=== PATIENT | female | born 1990 | race Two or more races ===

== ENCOUNTER 2019-01-17 17:35 | Emergency (ER) | payer OTHER ==
[2019-01-17 18:06] VITALS: BP 112/61; PULSE 88; TEMP 98.2
--- NOTE | 2019-01-17 19:51 | PDOC ---
History of Present Illness - General Chief Complaint: Chest Pain Stated Complaint: CHEST PAIN Time Seen by Provider: 01/17/19 19:34 History Source: Patient Exam Limitations: No Limitations - History of Present Illness Initial Comments: 01/17/19 19:42 Patient is a 28 year old female with no pmhx c/o left sided chest pain x 3 days. Patient that she was doing nothing when she noticed she had pain in the left side of her chest. States the pain is intermittent sharp, stabbing in the left chest, 7/10 which last for a few hours when the pain come, nonpleuritic, nonreproducible, with no aggravating or alleviating factors. Did not take any meds for the pain. No recent travel, no OCP. FamHx: father DM, HTN, HLD with a cardiac stent at 45 years old. PMHX: neg PSOCHX: neg etoh, cig, durgs ALL: NKDA GENERAL/CONSTITUTIONAL: [No fever or chills. No weakness. No weight change.] HEAD, EYES, EARS, NOSE AND THROAT: [No change in vision. No ear pain or discharge. No sore throat.] CARDIOVASCULAR: (+) chest pain (-) shortness of breath.] RESPIRATORY: (-) cough, wheezing, or hemoptysis.] GASTROINTESTINAL: [No nausea, vomiting, diarrhea or constipation. No rectal bleeding.] GENITOURINARY: [No dysuria, frequency, or change in urination.] MUSCULOSKELETAL: [No joint or muscle swelling or pain. No neck or back pain.] SKIN AND BREASTS: [No rash or easy bruising.] NEUROLOGIC: [No headache, vertigo, loss of consciousness, or loss of sensation.] PSYCHIATRIC: [No depression or anxiety.] ENDOCRINE: [No increased thirst. No abnormal weight change.] HEMATOLOGIC/LYMPHATIC: [No anemia, easy bleeding, or history of blood clots.] ALLERGIC/IMMUNOLOGIC: [No hives or skin allergy. No latex allergy.] GENERAL: [The patient is awake, alert, and fully oriented, in no acute distress. ] HEAD: [Normal with no signs of trauma.] EYES: [Pupils equal, round and reactive to light, extraocular movements intact, sclera anicteric, conjunctiva clear.] ENT: [Ears normal, nares patent, oropharynx clear without exudates. Moist mucous membranes.] NECK: [Normal range of motion, supple without lymphadenopathy, JVD, or masses.] LUNGS: [Breath sounds equal, clear to auscultation bilaterally. No wheezes, and no crackles.] HEART: [Regular rate and rhythm, normal S1 and S2 without murmur, rub.] ABDOMEN: [Soft, nontender, normoactive bowel sounds. No guarding, no rebound. No masses.] EXTREMITIES: [Normal range of motion, no edema. No clubbing or cyanosis. No cords, erythema, or tenderness.] NEUROLOGICAL: [Cranial nerves II through XII grossly intact. Normal speech, normal gait.] PSYCH: [Normal mood, normal affect.] SKIN: [Warm, Dry, normal turgor, no rashes or lesions noted.] Past History - Past Medical History Allergies/Adverse Reactions: Allergies Allergy/AdvReac Type Severity Reaction Status Date / Time No Known Allergies Allergy Verified 02/27/14 16:51 Home Medications: Ambulatory Orders No Home Medications 0 dose .ROUTE UTDICT 05/20/13 Asthma: No Cancer: No Cardiac Disorders: No CVA: No COPD: No CHF: No - Surgical History Appendectomy: No Cardiac Surgery: No Cholecystectomy: No - Suicide/Smoking/Psychosocial Hx Smoking Status: No Smoking History: Never smoked Have you smoked in the past 12 months: No Number of Cigarettes Smoked Daily: 0 Information on smoking cessation initiated: No Hx Alcohol Use: No Drug/Substance Use Hx: No Cardiac Specific PMH - Complaint Specific PMHX Myocardial Infarction: No *Physical Exam - Vital Signs Last Vital Signs Temp Pulse Resp BP Pulse Ox 98.2 F 88 20 112/61 100 01/17/19 18:04 01/17/19 18:04 01/17/19 18:04 01/17/19 18:04 01/17/19 18:04 Moderate Sedation - Procedure Monitoring Vital Signs: Procedure Monitoring Vital Signs Temperature 98.2 F 01/17/19 18:04 Pulse Rate 88 01/17/19 18:04 Respiratory Rate 20 01/17/19 18:04 Blood Pressure 112/61 01/17/19 18:04 O2 Sat by Pulse Oximetry (%) 100 01/17/19 18:04 ED Treatment Course - LABORATORY CBC & Chemistry Diagram: 01/17/19 20:26 01/17/19 20:26 - ADDITIONAL ORDERS Additional order review: Laboratory Results 01/17/19 01/17/19 20:26 19:56 Sodium 138 Potassium 4.6 Chloride 108 H Carbon Dioxide 22 Anion Gap 8 BUN 10 Creatinine 0.7 Creat Clearance w eGFR > 60 Random Glucose 76 Calcium 9.1 Total Bilirubin 0.2 AST 15 ALT 25 Alkaline Phosphatase 70 Creatine Kinase 146 Troponin I < 0.02 Total Protein 7.7 Albumin 4.2 Serum , Qual Negative 01/17/19 20:26 RBC 4.41 MCV 87.1 MCHC 33.8 RDW 13.7 MPV 9.7 D Neutrophils % 51.7 D Lymphocytes % 34.5 D Monocytes % 10.5 H Eosinophils % 2.4 D Basophils % 0.9 - RADIOLOGY Radiology Studies Ordered: Category Date Time Status CHEST PA & LAT [RAD] Stat Radiology 01/17/19 21:19 Taken Medical Decision Making - Medical Decision Making 01/17/19 19:42 Patient is a 28 year old female with no pmhx c/o left sided chest pain x 3 days. Patient that she was doing nothing when she noticed she had pain in the left side of her chest. States the pain is intermittent sharp, stabbing in the left chest, 7/10 which last for a few hours when the pain come, nonpleuritic, nonreproducible, with no aggravating or alleviating factors. Did not take any meds for the pain. No recent travel, no OCP. FamHx: father DM, HTN, HLD with a cardiac stent at 45 years old. Patient is PERC neg. EKG done show some T wave inversion, will get cbc, comp, trop, cxr EKG ST 104, NAD, T wave inversion V1-V2 01/17/19 21:46 Laboratory Tests 01/17/19 20:26 Troponin I < 0.02 I discussed the physical exam findings, ancillary test results and final diagnoses with the patient. I answered all of the patient's questions. The patient was satisfied with the care received and felt comfortable with the discharge plan and treatment plan. The Patient agrees to follow up with the primary care physician within 24-72 hours. *DC/Admit/Observation/Transfer Diagnosis at time of Disposition: Chest pain Qualifiers: Chest pain type: unspecified Qualified Code(s): R07.9 - Chest pain, unspecified - Discharge Dispostion Disposition: HOME Condition at time of disposition: Stable - Referrals Referrals: Raul Ortega MD [Staff Physician] - - Patient Instructions Printed Discharge Instructions: DI for Atypical Chest Pain Additional Instructions: Your Discharge Instructions: You must call primary care physician within 24 hours to arrange follow-up. Return to the Emergency Department with any new, persistent or worsening symptoms, for fever, chills, SOB, dizziness or any other concerning changes that may occur. Follow up with cardiology call to make an appointment. - Post Discharge Activity
[2019-01-17 20:38] LABS: BASO % 0.9 % (0-2.0); EOS % 2.4 % (0-4.5); HEMATOCRIT 38.4 % (32.4-45.2); LYMPH % 34.5 % (8-40); MCH 29.4 pg (25.7-33.7); MCHC 33.8 g/dl (32.0-36.0); MEAN CELL VOLUME 87.1 fl (80-96); MEAN PLT VOLUME 9.7 fl (7.5-11.1); MONO % 10.5 % (3.8-10.2); NEUT % 51.7 % (42.8-82.8); PLATELET COUNT 313 K/MM3 (134-434); RBC 4.41 M/mm3 (3.60-5.2); RDW 13.7 % (11.6-15.6); WHITE BLOOD COUNT 5.8 K/mm3 (4.0-10.0)
[2019-01-17 21:05] LABS: ALBUMIN 4.2 g/dl (3.4-5.0); ALK PHOS 70 U/L (45-117); ANION GAP 8 MMOL/L (8-16); BILIRUBIN,TOTAL 0.2 mg/dL (0.2-1); BLOOD UREA NITROGEN 10 mg/dL (7-18); CALCIUM 9.1 mg/dL (8.5-10.1); CHLORIDE 108 mmol/L (98-107); CO2 22 mmol/L (21-32); CREATININE 0.7 mg/dL (0.55-1.3); GLUCOSE,RANDOM 76 mg/dL (74-106); POTASSIUM 4.6 mmol/L (3.5-5.1); SGOT/AST 15 U/L (15-37); SGPT/ALT 25 U/L (13-61); SODIUM 138 mmol/L (136-145); TOT PROT 7.7 g/dl (6.4-8.2)
[2019-01-17 23:41] LABS: PLATELET ESTIMATE ADEQUATE
--- NOTE | 2019-01-18 09:43 | EKG ---
Test Reason : Blood Pressure : / mmHG Vent. Rate : 104 BPM Atrial Rate : 104 BPM P-R Int : 126 ms QRS Dur : 082 ms QT Int : 342 ms P-R-T Axes : 058 063 056 degrees QTc Int : 449 ms SINUS TACHYCARDIA NONSPECIFIC T WAVE ABNORMALITY ABNORMAL ECG NO PREVIOUS ECGS AVAILABLE Confirmed by RUSTAM ARSHAD MD ([id number]) on 01/18/2019 9:42:45 AM Referred By: Confirmed By:RUSTAM ARSHAD MD
== END 2019-01-17 23:35 | disposition home or self-care (01) ==
LOC: JER 17:35
DX: R07.9 Chest pain, unspecified (principal)
CPT/HCPCS: 36415; 71046-TC-FY; 80053; 82550; 84484; 84703; 85025; 93005; 93010; 99283-25

== ENCOUNTER 2019-09-20 04:52 | Inpatient (IN) | payer OTHER ==
[2019-09-16 18:34] VITALS: BMI 20.5
[2019-09-20] MEDS ORDERED: oxyCODONE HCL 5 MG TABLET PO PRN (08:05)
[2019-09-20] MEDS ORDERED: ACETAMINOPHEN 325 MG TABLET (FP) PO PRN (08:05)
--- NOTE | 2019-09-20 08:05 | HP ---
History & Physical Update - History History: No Change - Physical Physical: No Change - Assessment Assessment: No Change - Plan Plan: No Change (No change in HP)
[2019-09-20] MEDS ORDERED: ONDANSETRON 4 MG/2 ML VIAL IVPUSH PRN (10:01)
[2019-09-20] MEDS ORDERED: DOCUSATE SODIUM 100 MG CAPSULE (FP) PO PRN (10:05)
[2019-09-20] MEDS ORDERED: BISACODYL 5 MG TABLET.DR (FP) PO PRN (10:05)
[2019-09-20] MEDS ORDERED: DEXAMETHASONE SOD PHOSPHATE/PF 10 MG/ML SDV ONE (10:08)
[2019-09-20] MEDS ORDERED: MIDAZOLAM HCL 2 MG/2 ML SINGLE DOSE VIAL ONE ×3 (10:09→12:03)
[2019-09-20] MEDS ORDERED: BUPIVACAINE HCL/PF 0.5% (5 MG/ML) 30 ML VIAL IJ ONE (10:09)
[2019-09-20] MEDS ORDERED: LACTATED RINGERS SOLUTION 1,000 ML IV SCH (10:15)
[2019-09-20] MEDS ORDERED: VASOPRESSIN 20 UNITS/ML VIAL IV ONE (11:36)
[2019-09-20] MEDS ORDERED: ROCURONIUM BROMIDE 50 MG/5 ML SYRINGE ONE (12:03)
[2019-09-20] MEDS ORDERED: ceFAZolin SODIUM 1 GM VIAL IVPB ONE (12:18)
[2019-09-20] MEDS ORDERED: ACETAMINOPHEN 1000 MG/100 ML VIAL (NON FORMULARY) IVPB ONE (12:30)
[2019-09-20] MEDS ORDERED: GLYCOPYRROLATE 0.2 MG/1 ML VIAL ONE (14:05)
[2019-09-20] MEDS ORDERED: NEOSTIGMINE METHYLSULFATE 0.5 MG/ML - 10 ML MDV ONE (14:05)
[2019-09-20] MEDS ORDERED: SODIUM CHLORIDE 0.9% 500 ML INFUS.BAG IV SCH (15:00)
[2019-09-20] MEDS ORDERED: SODIUM CHLORIDE 500 ML IV SCH (15:15)
[2019-09-20] MEDS ORDERED: ACETAMINOPHEN INJECTION 100 ML IVPB ONE (15:32)
--- NOTE | 2019-09-20 16:14 | OP ---
Operative Note - Note: Operative Date: 09/20/19 Pre-Operative Diagnosis: Leiomyoma Operation: Open abdominal myomectomy Findings: as dictated Post-Operative Diagnosis: Same as Pre-op Surgeon: Candace Tejeda Statistics Teacher: Erika Alonzo Anesthesiologist/MUCK MINER BLASTING: Megan Mejia Anesthesia: General Specimens Removed: Leiomyoma Estimated Blood Loss (mls): 100 (ml) Drains, Volume Out (mls): 100 (ml yellow urine) Fluid Volume Replaced (mls): 1 (L LR) Operative Report Dictated: Yes
--- NOTE | 2019-09-20 16:14 | SURG ---
Surgery Medical Operations Supervisor Note Medical Operations Supervisor: Erika Alonzo PA-C (Suzy) Date of Service: 09/20/19 Diagnosis: Leiomyoma Procedure: Operation: Open abdominal myomectomy I was present for the entirety of the operative procedure. For further detail, please refer to operative report. Visit type - Case Type Case Type: Scheduled - Emergency Emergency Visit: No - New patient This patient is new to me today: Yes Date on this admission: 09/20/19 - Critical Care Critical Care patient: No
[2019-09-20 19:35] LABS: HEMATOCRIT 36.4 % (32.4-45.2); HEMOGLOBIN 11.6 GM/dL (10.7-15.3); MCH 27.8 pg (25.7-33.7); MEAN CELL VOLUME 87.1 fl (80-96); MEAN PLT VOLUME 9.8 fl (7.5-11.1); PLATELET COUNT 277 K/MM3 (134-434); RBC 4.18 M/mm3 (3.60-5.2); RDW 12.8 % (11.6-15.6)
[2019-09-20 20:02] LABS: BLOOD UREA NITROGEN 8.2 mg/dL (7-18); CALCIUM 8.3 mg/dL (8.5-10.1); CREATININE 0.7 mg/dL (0.55-1.3)
[2019-09-20] MEDS: CEFAZOLIN 2 GM/D5W 2 GM/50 ML ML IVPB SCH (20:50)
[2019-09-20] MEDS: IBUPROFEN 800 MG/8 ML IJ IVPB PRN (21:47)
[2019-09-21] MEDS: CEFAZOLIN 2 GM/D5W 2 GM/50 ML ML IVPB SCH (03:20)
[2019-09-21 07:23] LABS: HEMATOCRIT 31.5 % (32.4-45.2); HEMOGLOBIN 10.5 GM/dL (10.7-15.3); LYMPH % 11.2 % (8-40); MCHC 33.3 g/dl (32.0-36.0); MEAN CELL VOLUME 87.2 fl (80-96); MEAN PLT VOLUME 9.5 fl (7.5-11.1); MONO % 12.8 % (3.8-10.2); PLATELET COUNT 253 K/MM3 (134-434); RBC 3.61 M/mm3 (3.60-5.2); RDW 13.1 % (11.6-15.6); WHITE BLOOD COUNT 8.5 K/mm3 (4.0-10.0)
[2019-09-21 07:47] LABS: BLOOD UREA NITROGEN 8.1 mg/dL (7-18); CALCIUM 8.6 mg/dL (8.5-10.1); CREATININE 0.7 mg/dL (0.55-1.3)
--- NOTE | 2019-09-21 09:09 | PN ---
Progress Note (short form) - Note Progress Note: POD 1, s/p Open abdominal myomectomy, hysteroscopic myomectomy, suction d&c Pt seen and examined. Reports she is feeling well. No issues overnight. Has not had PO, fr[place] still in place. Has not been oob yet. No flatus. Denies cp/sob, n/ v/d. Has some vaginal bleeding reports it is minimal. Vital Signs Temp 98.3 F 09/21/19 05:00 Pulse 72 09/21/19 05:00 Resp 20 09/21/19 05:00 BP 99/50 L 09/21/19 05:00 Pulse Ox 98 09/21/19 05:00 Intake & Output 09/20/19 09/20/19 09/21/19 11:59 23:59 11:59 Intake Total 2700 500 Output Total 1025 1400 Balance 1675 -900 Intake: IV 2700 500 Lactated Ringers Solution 300 500 1,000 ml @ 75 mls/hr IV ASDIR BLAINE Rx#:[id number] Output: Urine 925 1400 [place] 1400 Estimated Blood Loss 100 Other: Voiding Method Indwelling Catheter CBC, BMP 09/21/19 06:47 09/21/19 06:47 Gen: awake, alert, nad Resp: unlabored on RA Abdo: soft, minimal ttp in lower abdomen, dressing removed, steristrips in place c/d/i. No surrounding erythema or drainage. + bowel sounds. [place] in place with yellow urine in reservoir. Ext: Scds in place and on A/P: 29 y/o F w/ h/o leiomyomas, now POD 1, s/p Open abdominal myomectomy, hysteroscopic myomectomy, suction d&c. Afebrile, vss, labs stable. Exam stable -Pain management with Ibuprofen IV 800mg q8h, Oxy 5/10 q4h prn, Tylenol 1g q6hrs scheduled -[place] out this AM -Clears, Advance diet as tolerated -OOB with assistance -Zofran 4mg q6hrs prn nausea -Bowel regimen as ordered -Monitor I&Os -VS per prtocol -Incentive spirometer strongly encouraged -DVT prophylaxis with Lovenox 40 qd, scds and early ambulation above d/w attending Dr Tejeda
[2019-09-21] MEDS: IBUPROFEN 800 MG/8 ML IJ IVPB PRN (09:15)
[2019-09-21] MEDS: ENOXAPARIN NA (PORCINE) 40 MG/0.4 ML DISP.SYRIN SQ SCH (09:15)
[2019-09-21] MEDS: SIMETHICONE 80 MG TAB.CHEW (FP) PO PRN ×3 (09:16→21:40)
[2019-09-21] MEDS: ACETAMINOPHEN 1000 MG/100 ML VIAL (NON FORMULARY) IVPB SCH ×4 (12:24→22:27)
--- NOTE | 2019-09-21 13:05 | OP ---
DATE OF OPERATION: 09/20/2019 PREOPERATIVE DIAGNOSIS: Leiomyomatous uterus, pelvic pain, endometrial polyps. OPERATION: Hysteroscopic myomectomy, suction dilation and curettage, and abdominal myomectomy. POSTOPERATIVE DIAGNOSIS: Leiomyomatous uterus, pelvic pain, endometrial polyps. SURGEON: Candace Tejeda MD MOTOR ASSEMBLER: MO Lopez ANESTHESIA: General. FINDINGS: Endometrial polyps noted with hysteroscopic procedure as well as a large 9-cm posterior myoma removed from the uterus. ESTIMATED BLOOD LOSS: 100 mL. PROCEDURE: Patient was taken to the operating room, placed in dorsal lithotomy position, prepped and draped in the usual sterile fashion. Time-out was performed in accordance with hospital regulation. Speculum was placed in the vagina. Anterior lip of the cervix grasped with a single-tooth tenaculum. Cervix then dilated to accommodate the operative hysteroscope. Hysteroscope was then inserted. Visualization revealed endometrial polyps. Cautery and cutting of the polyps was done followed by suction dilation and curettage. Specimen submitted to Pathology after suction dilation and curettage had been done. All instruments were then removed and attention was then joined to the umbilicus where a Pfannenstiel skin incision was made. Cautery was then used to go through layers of abdominal wall to the level of the fascia. Fascia was cut in the midline. Cautery was then used to open the fascia in smiling fashion. Kochers were then used to bluntly and sharply dissect the rectus muscles and fascia. Muscles were split in the midline. Peritoneal cavity was then entered. A leiomyomatous uterus was noted. Posterior myoma about 9 cm in size. The uterus was then exteriorized. Pitressin was infiltrated into the serosa of the uterus. Cautery was then used to open the serosa down to the level of the intramural myoma. Using blunt and sharp technique, the myoma was then enucleated out and then submitted to Pathology. Myoma was noted to be about 9 cm in posterior aspect of the uterus. Muscle of the uterus was then closed in a continuous fashion using 0 Vicryl suture and V-Lock suture on the serosa. Hemostasis was achieved. Tubes and ovaries were noted to be normal. Uterus was then anteriorized. Abdominal cavity was cleaned with clean lap pads. Peritoneum then closed using 0 Biosyn suture. Fascia was then closed using 0 Vicryl suture in 2 parts. The skin was then closed using 3-0 Biosyn suture in subcuticular fashion. The wound was washed and dressed. The patient tolerated procedure well. Estimated blood loss was 100 mL. CANDACE TEJEDA M.D. [id number]
[2019-09-21] MEDS: oxyCODONE HCL 5 MG TABLET PO PRN (21:41)
--- NOTE | 2019-09-21 23:26 | PN ---
Progress Note (SOAP) - Subjective Chief Complaint: Pt doin well + flatus - Current Medications Current Medications: Active Medications Acetaminophen (Ofirmev Injection -) 1,000 mg IVPB Q6H BLAINE Stop: 09/22/19 03:31 Last Admin: 09/21/19 22:27 Dose: 1,000 mg Acetaminophen (Tylenol -) 650 mg PO Q4H PRN PRN Reason: PAIN LEVEL 1-5 Bisacodyl (Dulcolax -) 10 mg PO ONCE PRN PRN Reason: CONSTIPATION Docusate Sodium (Colace -) 100 mg PO TID PRN PRN Reason: CONSTIPATION Last Admin: 09/21/19 21:41 Dose: 100 mg Enoxaparin Sodium (Lovenox -) 40 mg SQ DAILY BLAINE Last Admin: 09/21/19 09:15 Dose: 40 mg Lactated Ringer's (Lactated Ringers Solution) 1,000 mls @ 75 mls/hr IV ASDIR BLAINE Sodium Chloride (Normal Saline -) 500 mls @ 125 mls/hr IV ASDIR BLAINE Last Admin: 09/20/19 16:25 Dose: 400 mls Ibuprofen (Caldolor Injection -) 800 mg IVPB Q8H PRN PRN Reason: FEVER Last Admin: 09/21/19 09:15 Dose: 800 mg Ondansetron HCl (Zofran Injection) 4 mg IVPUSH Q6H PRN PRN Reason: NAUSEA AND/OR VOMITING Oxycodone HCl (Roxicodone -) 5 mg PO Q4H PRN PRN Reason: PAIN LEVEL 1 - 3 Last Admin: 09/21/19 21:41 Dose: 5 mg Oxycodone HCl (Roxicodone -) 10 mg PO Q4H PRN PRN Reason: PAIN LEVEL 4 - 6 Simethicone (Mylicon -) 80 mg PO Q4H PRN PRN Reason: GAS Last Admin: 09/21/19 21:40 Dose: 80 mg - Objective Vital Signs: Vital Signs Temperature 98.5 F 09/21/19 20:55 Pulse Rate 79 09/21/19 20:55 Respiratory Rate 20 09/21/19 20:55 Blood Pressure 101/59 L 09/21/19 20:55 O2 Sat by Pulse Oximetry (%) 98 09/21/19 05:00 Constitutional: Yes: Well Nourished, No Distress Respiratory: Yes: WNL Labs Lab Results: CBC, BMP 09/21/19 06:47 09/21/19 06:47 Assessment/Plan SP myomectomy Hysterosopic mYomectomy POD1 Plan DC in am
[2019-09-22] MEDS: ACETAMINOPHEN 1000 MG/100 ML VIAL (NON FORMULARY) IVPB SCH (06:32)
--- NOTE | 2019-09-22 07:45 | PN ---
Progress Note (short form) - Note Progress Note: POD 2, s/p Open abdominal myomectomy, hysteroscopic myomectomy, suction d&c Pt seen and examined. Reports she is feeling well. No issues overnight. Tolerating Po, voiding without issue. Has been oob ambulating. Passing flatus. Denies cp/sob, n/v/d. Has some vaginal bleeding, no clots. Vital Signs Temp 98.5 F 09/21/19 20:55 Pulse 79 09/21/19 20:55 Resp 20 09/21/19 20:55 BP 101/59 L 09/21/19 20:55 Pulse Ox 98 09/21/19 05:00 Intake & Output 09/21/19 09/21/19 09/22/19 11:59 23:59 11:59 Intake Total 500 Output Total 1400 800 Balance -900 -800 Intake: IV 500 Lactated Ringers Solution 500 1,000 ml @ 75 mls/hr IV ASDIR BLAINE Rx#:[id number] Output: Urine 1400 800 Choudhary 1400 Void 800 Other: Voiding Method Toilet CBC, BMP 09/21/19 06:47 09/21/19 06:47 Gen: awake, alert, nad Resp: unlabored on RA Abdo: soft, minimal ttp in lower abdomen, steristrips in place c/d/i. No surrounding erythema or drainage. + bowel sounds. Ext: Scds in place and on A/P: 29 y/o F w/ h/o leiomyomas, now POD 2, s/p Open abdominal myomectomy, hysteroscopic myomectomy, suction d&c. Afebrile, vss. Exam stable d/c this AM Discharge instructions reviewed with pt at length, all questions answered above d/w attending Dr Tejeda
[2019-09-22] MEDS ORDERED: IBUPROFEN 600 MG TABLET (FP) PO PRN (08:00)
--- NOTE | 2019-09-22 08:48 | DS ---
Physical Exam: SUBJECTIVE: Patient seen and examined. Reports she is feeling well. No issues overnight. Tolerating Po, voiding without issue. Has been oob ambulating. Passing flatus. Denies cp/sob, n/v/d. Has some vaginal bleeding, no clots. OBJECTIVE: Vital Signs Temperature 98.5 F 09/21/19 20:55 Pulse Rate 79 09/21/19 20:55 Respiratory Rate 20 09/21/19 20:55 Blood Pressure 101/59 L 09/21/19 20:55 O2 Sat by Pulse Oximetry (%) 98 09/21/19 05:00 PHYSICAL EXAM Gen: awake, alert, nad Resp: unlabored on RA Abdo: soft, minimal ttp in lower abdomen, steristrips in place c/d/i. No surrounding erythema or drainage. + bowel sounds. Ext: Scds in place and on LABS CBC,CMP WBC 8.5 K/mm3 (4.0-10.0) 09/21/19 06:47 RBC 3.61 M/mm3 (3.60-5.2) 09/21/19 06:47 Hgb 10.5 GM/dL (10.7-15.3) L 09/21/19 06:47 Hct 31.5 % (32.4-45.2) L 09/21/19 06:47 MCV 87.2 fl (80-96) 09/21/19 06:47 MCH 29.0 pg (25.7-33.7) 09/21/19 06:47 MCHC 33.3 g/dl (32.0-36.0) 09/21/19 06:47 RDW 13.1 % (11.6-15.6) 09/21/19 06:47 Plt Count 253 K/MM3 (134-434) 09/21/19 06:47 MPV 9.5 fl (7.5-11.1) 09/21/19 06:47 Absolute Neuts (auto) 6.5 K/mm3 (1.5-8.0) 09/21/19 06:47 Neutrophils % 76.0 % (42.8-82.8) D 09/21/19 06:47 Lymphocytes % 11.2 % (8-40) D 09/21/19 06:47 Monocytes % 12.8 % (3.8-10.2) H 09/21/19 06:47 Eosinophils % 0.0 % (0-4.5) D 09/21/19 06:47 Basophils % 0.0 % (0-2.0) 09/21/19 06:47 Nucleated RBC % 0 % (0-0) 09/21/19 06:47 Sodium 139 mmol/L (136-145) 09/21/19 06:47 Potassium 4.0 mmol/L (3.5-5.1) 09/21/19 06:47 Chloride 109 mmol/L (98-107) H 09/21/19 06:47 Carbon Dioxide 25 mmol/L (21-32) 09/21/19 06:47 Anion Gap 5 MMOL/L (8-16) L 09/21/19 06:47 BUN 8.1 mg/dL (7-18) 09/21/19 06:47 Creatinine 0.7 mg/dL (0.55-1.3) 09/21/19 06:47 Est GFR (CKD-EPI)AfAm 134.75 09/21/19 06:47 Est GFR (CKD-EPI)NonAf 116.26 09/21/19 06:47 Random Glucose 99 mg/dL (74-106) 09/21/19 06:47 Calcium 8.6 mg/dL (8.5-10.1) 09/21/19 06:47 HOSPITAL COURSE: Date of Admission:09/20/19 Date of Discharge: 09/22/19 The patient was admitted to the Med-Surg Unit after an elective repair of Leiomyomas. Now, s/p Open abdominal myomectomy, hysteroscopic myomectomy, suction d&c. Pain management was achieved with a narcotic and non-narcotic oral and IV regimen. POD #1, the patient passed flatus and diet was advanced. Hemoglobin and hematocrit were monitored as well as vitals and remained stable throughout admission. Marlen-operative IV ABX were administered. DVT prophylaxis was achieved with Lovenox 40mg qd, SCDs and early ambulation. The patient ambulated the halls without issue. Narcotic scripts were checked with [facility] prior to escribe. The discharge instructions and an oral pain management plan were reviewed with the patient. All questions answered. Above plan discussed with Dr. Tjeeda and agreed. Minutes to complete discharge: 20 Visit type - Case Type Case Type: Scheduled - Emergency Emergency Visit: No - New patient This patient is new to me today: Yes Date on this admission: 09/22/19 - Critical Care Critical Care patient: No
[2019-09-22 09:09] VITALS: BP 104/63; PULSE 60; TEMP 98.6
[2019-09-22] MEDS: ENOXAPARIN NA (PORCINE) 40 MG/0.4 ML DISP.SYRIN SQ SCH (09:53)
[2019-09-22] MEDS: oxyCODONE HCL 5 MG TABLET PO PRN (10:00)
[2019-09-22] MEDS ORDERED: ACETAMINOPHEN 325 MG TABLET (FP) PO PRN (11:00)
--- NOTE | 2019-09-22 19:13 | PATH ---
Surgical Pathology Report Patient Name: CLARA SUAREZ [facility]. Rec. #: [id number] /Age/Gender: 1990 (Age: 29) / F Account: [id number] Location: [facility] OBS/SENIOR SALES MANAGER Taken: 09/20/2019 Received: 09/21/2019 Reported: 09/22/2019 Physicians: Candace Tejeda M.D. Specimen(s) Received A: POLYP OF ENDOMETRIAL B: MYOMA Clinical History Leiomyoma of uterus, polyp of corpus uteri Final Diagnosis A. ENDOMETRIAL POLYP, EXCISION: ENDOMETRIAL POLYP. SEPARATE POLYPOID FRAGMENTS OF SECRETORY TYPE ENDOMETRIAL GLANDS WITH DECIDUALIZED STROMA. SEE COMMENT. Comment: This may represent exogenous hormone effect. Suggest clinical correlation. B. MYOMA, EXCISION: LEIOMYOMA, 228 G. Electronically Signed Mirella Pedersen M.D. Gross Description A. Received in formalin labeled "endometrial polyp," is a 1.4 x 0.9 x 0.3 cm aggregate of elizabeth-brown soft tissue fragments. The formalin is filtered and the specimen is entirely submitted in one cassette. B. Received in formalin labeled "myoma," is a 228 g, 9.5 x 7.0 x 6.0 cm elizabeth, rubbery mass, consistent with a fibroid. Sectioning reveals elizabeth-pink, rubbery parenchyma with whorled architecture. No areas of hemorrhage or necrosis are identified. Clothing Consultant sections are submitted in 4 cassettes. DL/09/21/2019 saudi/09/21/2019
== END 2019-09-22 16:27 | disposition home or self-care (01) | DRG 743 ==
LOC: JSAMEDAYSX 04:52 → EDSTATUS 10:45 → J3W 19:19
PROVIDERS: ADMIT Obstetrics & Gynecology; ATTEND Obstetrics & Gynecology
PROC: 0UB98ZZ Excision of Uterus, Via Natural or Artificial Opening Endoscopic (ICD-10-PCS; principal; 2019-09-20 10:45)
PROC: 10D07Z8 Extraction of Products of Conception, Other, Via Natural or Artificial Opening (ICD-10-PCS; 2019-09-20 10:45)
DX: D25.1 Intramural leiomyoma of uterus (principal); R10.2 Pelvic and perineal pain; N84.0 Polyp of corpus uteri
CPT/HCPCS: 36415; 80048; 84703; 85025; 85027; 86850; 86900; 86901; 88305-TC; 94010; 94760; J0131

== ENCOUNTER 2020-10-02 09:20 | Inpatient (IN) | payer OTHER ==
[2020-10-02] MEDS: ELECTROLYTE-148 SOLN 1,000 ML IV SCH (09:40)
[2020-10-02 10:32] VITALS: BMI 24.2
[2020-10-02] MEDS ORDERED: CITRIC ACID/SODIUM CITRATE 30 ML UNIT-DOSE CUP PO ONE (10:59)
[2020-10-02] MEDS ORDERED: diphenhydrAMINE HCL 25 MG CAPSULE (FP) PO PRN (11:00)
[2020-10-02] MEDS ORDERED: BENZOCAINE 20% 57 GM BOTTLE TP PRN (11:00)
[2020-10-02] MEDS ORDERED: WITCH HAZEL 50% (TUCKS) 40 PAD/JAR PAD TP PRN (11:00)
[2020-10-02] MEDS ORDERED: IBUPROFEN 800 MG/8 ML IJ IVPB PRN (11:00)
[2020-10-02] MEDS ORDERED: METHYLERGONOVINE MALEATE 0.2 MG/1 ML AMP IM PRN (11:00)
[2020-10-02] MEDS ORDERED: BENZOCAINE 28 GM HEMORRHOIDAL OINTMENT TP PRN (11:00)
[2020-10-02 11:19] LABS: BASO % 0.6 % (0-2.0); EOS % 0.8 % (0-4.5); HEMATOCRIT 32.2 % (32.4-45.2); HEMOGLOBIN 10.4 GM/dL (10.7-15.3); LYMPH % 23.5 % (8-40); MCH 27.9 pg (25.7-33.7); MCHC 32.4 g/dl (32.0-36.0); MEAN CELL VOLUME 86.2 fl (80-96); MEAN PLT VOLUME 9.9 fl (7.5-11.1); MONO % 11.6 % (3.8-10.2); NEUT % 63.5 % (42.8-82.8); PLATELET COUNT 228 K/MM3 (134-434); RBC 3.74 M/mm3 (3.60-5.2); RDW 14.3 % (11.6-15.6); WHITE BLOOD COUNT 5.9 K/mm3 (4.0-10.0)
[2020-10-02 11:32] LABS: INR 0.94 (0.83-1.09); PROTHROMBIN TIME (PATIENT) 11.6 SEC (9.7-13.0)
[2020-10-02 11:34] LABS: ACTIVATED PTT 26.3 SECONDS (25.2-36.5)
[2020-10-02 11:49] LABS: POTASSIUM 4.4 mmol/L (3.5-5.1)
[2020-10-02 11:50] LABS: CALCIUM 8.8 mg/dL (8.5-10.1)
[2020-10-02 11:51] LABS: BLOOD UREA NITROGEN 5.8 mg/dL (7-18)
[2020-10-02] MEDS ORDERED: morphine SULFATE/PF 0.5 MG/ML (2cc Syringe - QUVA) ONE (11:51)
[2020-10-02 11:54] LABS: CREATININE 0.5 mg/dL (0.55-1.3)
[2020-10-02] MEDS ORDERED: SODIUM CHLORIDE 0.9% P/F 10 ML VIAL IJ ONE (11:55)
[2020-10-02] MEDS ORDERED: morphine SULFATE/PF 0.5 MG/ML (2cc Syringe - QUVA) EP ONE (12:03)
[2020-10-02] MEDS ORDERED: ePHEDrine SULFATE 50 MG/1 ML AMPULE ONE (12:10)
[2020-10-02] MEDS ORDERED: KETOROLAC TROMETHAMINE 30 MG/1 ML VIAL ONE (12:51)
[2020-10-02] MEDS ORDERED: OXYTOCIN 10 UNITS/ML VIAL ONE (12:51)
[2020-10-02] MEDS ORDERED: ceFAZolin SODIUM 1 GM VIAL ONE (12:51)
[2020-10-02 12:58] LABS: CORD BASE EXCESS -5.6 mmol/L (0-2); CORD HCO3 22.3 mmHg (20-29); CORD PCO2 52.4 mmHg (30-78); CORD pH 7.246 (7.14-7.44)
[2020-10-02 13:02] LABS: CORD BASE EXCESS -5.9 mmol/L (0-2); CORD HCO3 20.1 mmHg (20-29); CORD PCO2 41.2 mmHg (30-78); CORD pH 7.306 (7.14-7.44)
[2020-10-02] MEDS ORDERED: ONDANSETRON 4 MG/2 ML VIAL IVPUSH PRN (13:08)
[2020-10-02] MEDS ORDERED: ACETAMINOPHEN 1000 MG/100 ML VIAL (NON FORMULARY) IVPB ONE (13:09)
[2020-10-02] MEDS ORDERED: OXYTOCIN 20 UNITS in 0.9% NS 20 UNIT/1,000 ML INFUS.BAG IV ONE (13:15)
[2020-10-03 09:32] LABS: HEMATOCRIT 28.9 % (32.4-45.2); HEMOGLOBIN 9.4 GM/dL (10.7-15.3); MCHC 32.6 g/dl (32.0-36.0); MEAN PLT VOLUME 10.2 fl (7.5-11.1); PLATELET COUNT 228 K/MM3 (134-434); RBC 3.36 M/mm3 (3.60-5.2); RDW 13.8 % (11.6-15.6); WHITE BLOOD COUNT 9.2 K/mm3 (4.0-10.0)
[2020-10-03] MEDS ORDERED: FLU VACCINE (FLULAVAL) PF 60 MCG/0.5 ML SYRINGE 2020-2021 IM ONE (10:00)
[2020-10-03] MEDS ORDERED: DIPHTH,PERTUSS(ACELL),TET 0.5 ML DISP.SYRIN IM ONE (10:00)
[2020-10-03] MEDS ORDERED: BISACODYL 10 MG SUPP.RECT PR PRN (11:00)
[2020-10-03] MEDS ORDERED: oxyCODONE HCL 5 MG TABLET PO PRN (11:00)
[2020-10-03] MEDS: IBUPROFEN 600 MG TABLET (FP) PO PRN ×2 (13:48→20:47)
[2020-10-03] MEDS: SIMETHICONE 80 MG TAB.CHEW (FP) PO PRN ×2 (13:49→20:49)
[2020-10-03] MEDS: ACETAMINOPHEN 325 MG TABLET (FP) PO PRN ×2 (13:49→20:48)
[2020-10-04] MEDS: IBUPROFEN 600 MG TABLET (FP) PO PRN ×3 (08:30→22:13)
[2020-10-04] MEDS: ACETAMINOPHEN 325 MG TABLET (FP) PO PRN ×3 (08:31→22:12)
[2020-10-04] MEDS: SIMETHICONE 80 MG TAB.CHEW (FP) PO PRN ×2 (08:31→22:14)
[2020-10-04] MEDS: OXYTOCIN 20 UNITS in 0.9% NS 20 UNIT/1,000 ML INFUS.BAG IV SCH ×2 (20:55→20:56)
[2020-10-04] MEDS: ELECTROLYTE-148 SOLN 1,000 ML IV SCH (20:56)
[2020-10-04] MEDS ORDERED: SENNOSIDES/DOCUSATE COMBO (SENNA PLUS) TABLET (UD) PO PRN (22:00)
[2020-10-04] MEDS: oxyCODONE HCL 5 MG TABLET PO PRN (22:13)
[2020-10-05] MEDS: ACETAMINOPHEN 325 MG TABLET (FP) PO PRN (02:11)
[2020-10-05] MEDS: oxyCODONE HCL 5 MG TABLET PO PRN (02:11)
[2020-10-05] MEDS: IBUPROFEN 600 MG TABLET (FP) PO PRN (02:11)
[2020-10-05] MEDS: SIMETHICONE 80 MG TAB.CHEW (FP) PO PRN (02:12)
[2020-10-05 08:31] LABS: HEMATOCRIT 28.2 % (32.4-45.2); HEMOGLOBIN 9.3 GM/dL (10.7-15.3); MCHC 32.9 g/dl (32.0-36.0); MEAN CELL VOLUME 85.4 fl (80-96); MEAN PLT VOLUME 9.3 fl (7.5-11.1); PLATELET COUNT 215 K/MM3 (134-434); RDW 14.3 % (11.6-15.6); WHITE BLOOD COUNT 7.4 K/mm3 (4.0-10.0)
[2020-10-05 10:14] VITALS: BP 113/70; PULSE 85; TEMP 98.6
== END 2020-10-05 13:25 | disposition home or self-care (01) | DRG 540 ==
LOC: JLDR 09:20 → J3W 14:37
PROVIDERS: ADMIT Obstetrics & Gynecology; ATTEND Obstetrics & Gynecology
PROC: 10D00Z1 Extraction of Products of Conception, Low, Open Approach (ICD-10-PCS; principal; 2020-10-02)
DX: O34.29 Maternal care due to uterine scar from other previous surgery (principal); O69.81X0 Labor and delivery complicated by cord around neck, without compression, not applicable or unspecified; Z3A.38 38 weeks gestation of pregnancy; Z37.0 Single live birth
CPT/HCPCS: 36415; 36600; 80048; 82803; 85025; 85027; 85610; 85730; 86780; 86850; 86900; 86901; 88307-TC; 90715; G0008; J0131; Q2036

== ENCOUNTER 2022-08-08 06:15 | Inpatient (IN) | payer OTHER ==
[2022-08-08] MEDS ORDERED: ELECTROLYTE-148 SOLN 500 ML IV ONE (06:40)
[2022-08-08] MEDS ORDERED: ELECTROLYTE-148 SOLN 1,000 ML IV SCH ×2 (07:10→07:30)
[2022-08-08] MEDS ORDERED: BENZOCAINE 28 GM HEMORRHOIDAL OINTMENT TP PRN (07:19)
[2022-08-08] MEDS ORDERED: WITCH HAZEL 50% (TUCKS) 40 PAD/JAR PAD TP PRN (07:19)
[2022-08-08] MEDS ORDERED: ACETAMINOPHEN 325 MG TABLET (FP) PO PRN ×2 (07:19→09:08)
[2022-08-08] MEDS ORDERED: BENZOCAINE 20% 57 GM BOTTLE TP PRN (07:19)
[2022-08-08] MEDS ORDERED: IBUPROFEN 800 MG/8 ML IJ IVPB PRN (07:19)
[2022-08-08] MEDS ORDERED: IBUPROFEN 600 MG TABLET (FP) PO PRN (07:19)
[2022-08-08] MEDS ORDERED: METHYLERGONOVINE MALEATE 0.2 MG/1 ML AMP IM PRN (07:19)
[2022-08-08] MEDS ORDERED: CITRIC ACID/SODIUM CITRATE 30 ML UNIT-DOSE CUP PO ONE (07:45)
[2022-08-08] MEDS ORDERED: ONDANSETRON 4 MG/2 ML VIAL ONE (07:56)
[2022-08-08] MEDS ORDERED: DEXAMETHASONE SOD PHOSPHATE 4 MG/1 ML VIAL ONE (07:56)
[2022-08-08] MEDS ORDERED: morphine SULFATE (PF) 1 MG/2 ML SYRINGE ONE (07:56)
[2022-08-08] MEDS ORDERED: ceFAZolin SODIUM 1 GM VIAL ONE (07:56)
[2022-08-08] MEDS ORDERED: PHENYLEPHRINE HCL 10 MG/1 ML SINGLE DOSE VIAL ONE (07:57)
[2022-08-08] MEDS ORDERED: ONDANSETRON 4 MG/2 ML VIAL IVPUSH PRN ×2 (08:04→19:42)
[2022-08-08] MEDS ORDERED: morphine SULFATE/PF 1 MG/2 ML (2cc Syringe - QUVA) EP ONE (08:04)
[2022-08-08 08:05] VITALS: BMI 24.3
[2022-08-08] MEDS ORDERED: SODIUM CHLORIDE 0.9% P/F 10 ML VIAL IJ ONE (08:10)
[2022-08-08] MEDS ORDERED: LACTATED RINGERS SOLUTION 1,000 ML IV SCH (08:15)
[2022-08-08] MEDS ORDERED: ePHEDrine SULFATE 50 MG/1 ML AMPULE ONE (08:28)
[2022-08-08] MEDS: OXYTOCIN 20 UNITS in 0.9% NS 20 UNIT/1,000 ML INFUS.BAG IV SCH ×2 (08:37→19:12)
[2022-08-08] MEDS ORDERED: OXYTOCIN 10 UNITS/ML VIAL ONE (08:37)
[2022-08-08] MEDS ORDERED: TRIAMCINOLONE ACET 40MG/1ML VIAL SQ ONE (09:00)
[2022-08-08 09:55] LABS: CORD BASE EXCESS -7.5 mmol/L (0-2); CORD HCO3 20.9 mmHg (20-29); CORD PCO2 53.1 mmHg (30-78); CORD pH 7.213 (7.14-7.44)
[2022-08-08 09:59] LABS: CORD BASE EXCESS -4.4 mmol/L (0-2); CORD HCO3 21.2 mmHg (20-29); CORD pH 7.331 (7.14-7.44)
[2022-08-08] MEDS: PRENATAL VITAMINS W/ FOLIC ACID TABLET (FP) PO SCH (10:00)
[2022-08-08] MEDS ORDERED: OXYTOCIN 20 UNITS in 0.9% NS 20 UNIT/1,000 ML INFUS.BAG IV ONE ×2 (10:39→11:30)
[2022-08-08] MEDS ORDERED: IBUPROFEN 800 MG/8 ML IJ IVPB ONE (11:30)
[2022-08-08] MEDS ORDERED: HALOPERIDOL LACTATE 5 MG/ML IV ONE (14:54)
[2022-08-09] MEDS ORDERED: BISACODYL 10 MG SUPP.RECT RC PRN (07:19)
[2022-08-09 09:18] LABS: BASO % 0.4 % (0-2.0); HEMATOCRIT 30.5 % (32.4-45.2); MCH 28.1 pg (25.7-33.7); MCHC 32.9 g/dl (32.0-36.0); MEAN CELL VOLUME 85.4 fl (80-96); MEAN PLT VOLUME 9.8 fl (7.5-11.1); MONO % 9.8 % (3.8-10.2); NEUT % 78.8 % (42.8-82.8); PLATELET COUNT 323 10^3/uL (134-434); RBC 3.57 M/mm3 (3.60-5.2); RDW 14.1 % (11.6-15.6); WHITE BLOOD COUNT 14.5 K/mm3 (4.0-10.0)
[2022-08-09] MEDS: PRENATAL VITAMINS W/ FOLIC ACID TABLET (FP) PO SCH (09:47)
[2022-08-09] MEDS ORDERED: ACETAMINOPHEN 500 MG TABLET (FP) PO PRN (10:06)
[2022-08-09] MEDS: IBUPROFEN 600 MG TABLET (FP) PO PRN (14:59)
[2022-08-09] MEDS: SIMETHICONE 80 MG TAB.CHEW (FP) PO PRN (15:00)
[2022-08-09] MEDS ORDERED: oxyCODONE HCL 5 MG TABLET PO PRN ×2 (19:19)
[2022-08-09] MEDS: SENNOSIDES/DOCUSATE COMBO (SENNA PLUS) TABLET (UD) PO PRN (21:28)
[2022-08-10] MEDS: SIMETHICONE 80 MG TAB.CHEW (FP) PO PRN ×2 (05:48→11:39)
[2022-08-10] MEDS: IBUPROFEN 600 MG TABLET (FP) PO PRN ×4 (05:49→21:19)
[2022-08-10] MEDS: PRENATAL VITAMINS W/ FOLIC ACID TABLET (FP) PO SCH (11:39)
[2022-08-10] MEDS: SENNOSIDES/DOCUSATE COMBO (SENNA PLUS) TABLET (UD) PO PRN (21:19)
[2022-08-10 22:10] VITALS: RESP 18
[2022-08-11 08:08] LABS: BASO % 0.5 % (0-2.0); EOS % 0.9 % (0-4.5); HEMATOCRIT 28.2 % (32.4-45.2); HEMOGLOBIN 9.5 GM/dL (10.7-15.3); LYMPH % 21.7 % (8-40); MCH 28.6 pg (25.7-33.7); MCHC 33.7 g/dl (32.0-36.0); MEAN PLT VOLUME 8.2 fl (7.5-11.1); MONO % 10.5 % (3.8-10.2); NEUT % 66.4 % (42.8-82.8); PLATELET COUNT 230 10^3/uL (134-434); RBC 3.32 M/mm3 (3.60-5.2); RDW 14.3 % (11.6-15.6); WHITE BLOOD COUNT 8.3 K/mm3 (4.0-10.0)
[2022-08-11] MEDS: IBUPROFEN 600 MG TABLET (FP) PO PRN (09:21)
[2022-08-11] MEDS: SIMETHICONE 80 MG TAB.CHEW (FP) PO PRN (09:22)
[2022-08-11] MEDS: PRENATAL VITAMINS W/ FOLIC ACID TABLET (FP) PO SCH (09:22)
[2022-08-11 10:27] VITALS: BP 101/70; PULSE 89; TEMP 98
== END 2022-08-11 13:15 | disposition home or self-care (01) | DRG 788 ==
LOC: JLDR 06:15 → J3W 11:42
PROVIDERS: ADMIT Obstetrics & Gynecology; ATTEND Obstetrics & Gynecology
PROC: 10D00Z1 Extraction of Products of Conception, Low, Open Approach (ICD-10-PCS; principal; 2022-08-08)
DX: O34.218 Maternal care for other type scar from previous cesarean delivery (principal); Z3A.38 38 weeks gestation of pregnancy; Z37.0 Single live birth
CPT/HCPCS: 36415; 36600; 82803; 85025; 88307-TC

== ENCOUNTER 2023-12-01 06:20 | Inpatient (IN) | payer OTHER ==
[2023-12-01 07:45] LABS: BASO % 0.5 % (0-2.0); EOS % 1.2 % (0-4.5); HEMATOCRIT 31.6 % (32.4-45.2); HEMOGLOBIN 10.5 GM/dL (10.7-15.3); LYMPH % 30.5 % (8-40); MCH 28.3 pg (25.7-33.7); MCHC 33.2 g/dl (32.0-36.0); MEAN CELL VOLUME 85.2 fl (80-96); MEAN PLT VOLUME 8.4 fl (7.5-11.1); MONO % 12.5 % (3.8-10.2); NEUT % 55.3 % (42.8-82.8); PLATELET COUNT 223 10^3/uL (134-434); RBC 3.71 M/mm3 (3.60-5.2); RDW 15.8 % (11.6-15.6); WHITE BLOOD COUNT 5.3 K/mm3 (4.0-10.0)
[2023-12-01 07:49] LABS: INR 0.99 (0.83-1.09); PROTHROMBIN TIME (PATIENT) 11.5 SEC (9.7-13.0)
[2023-12-01 07:52] LABS: ACTIVATED PTT 27.4 SECONDS (25.2-36.5)
[2023-12-01 07:56] LABS: POTASSIUM 3.6 mmol/L (3.5-5.1)
[2023-12-01 07:57] LABS: CALCIUM 8.6 mg/dL (8.5-10.1)
[2023-12-01 07:58] LABS: BLOOD UREA NITROGEN 6.6 mg/dL (7-18)
[2023-12-01 08:01] LABS: CREATININE 0.6 mg/dL (0.55-1.3)
[2023-12-01] MEDS ORDERED: WITCH HAZEL 50% (TUCKS) 40 PAD/JAR PAD TP PRN (08:10)
[2023-12-01] MEDS ORDERED: METHYLERGONOVINE MALEATE 0.2 MG/1 ML AMP IM PRN (08:10)
[2023-12-01] MEDS ORDERED: ACETAMINOPHEN 325 MG TABLET (FP) PO PRN (08:10)
[2023-12-01] MEDS ORDERED: ELECTROLYTE-148 SOLN 1,000 ML IV SCH (08:15)
[2023-12-01 08:52] LABS: HIV INTERPRETATION NEGATIVE (NEGATIVE)
[2023-12-01 08:53] VITALS: BMI 24.5
[2023-12-01] MEDS ORDERED: OXYTOCIN 30 UNITS in 0.9% NS 30 UNIT/500 ML INFUS.BAG IVPB ONE (09:10)
[2023-12-01] MEDS ORDERED: ONDANSETRON 4 MG/2 ML VIAL ONE ×2 (09:11→14:35)
[2023-12-01] MEDS ORDERED: DEXAMETHASONE SOD PHOSPHATE 4 MG/1 ML VIAL ONE ×2 (09:11→11:33)
[2023-12-01] MEDS ORDERED: METOCLOPRAMIDE HCL INJECTION 10 MG/2 ML VIAL ONE (09:11)
[2023-12-01] MEDS ORDERED: PHENYLEPHRINE HCL 10 MG/1 ML SINGLE DOSE VIAL ONE (09:11)
[2023-12-01] MEDS ORDERED: ceFAZolin SODIUM 1 GM VIAL ONE (09:11)
[2023-12-01] MEDS ORDERED: morphine SULFATE/PF 1 MG/2 ML (2cc Syringe - QUVA) ONE (09:11)
[2023-12-01] MEDS ORDERED: FENTANYL CITRATE/PF 50 MCG/ML VIAL ONE (09:11)
[2023-12-01] MEDS ORDERED: LIGASURE IMPACT TP ONE (10:33)
[2023-12-01] MEDS ORDERED: morphine SULFATE/PF 1 MG/2 ML (2cc Syringe - QUVA) IT ONE (11:31)
[2023-12-01] MEDS ORDERED: KETOROLAC TROMETHAMINE 30 MG/1 ML VIAL ONE (11:58)
[2023-12-01] MEDS ORDERED: TRANEXAMIC ACID 1000 MG/10 ML VIAL ONE (12:22)
[2023-12-01] MEDS: FERROUS SO4 325 MG TABLET (FP) PO SCH ×2 (12:38→21:16)
[2023-12-01] MEDS: PRENATAL VITAMINS W/ FOLIC ACID TABLET (FP) PO SCH (12:39)
[2023-12-01 13:05] LABS: CORD BASE EXCESS -2.1 mmol/L (0-2); CORD HCO3 22.7 mmHg (20-29); CORD PCO2 38.9 mmHg (30-78); CORD pH 7.383 (7.14-7.44)
[2023-12-01] MEDS ORDERED: CITRIC ACID/SODIUM CITRATE 30 ML UNIT-DOSE CUP PO ONE (13:07)
[2023-12-01] MEDS: OXYTOCIN 20 UNITS in 0.9% NS 20 UNIT/1,000 ML INFUS.BAG IV SCH (13:20)
[2023-12-01] MEDS ORDERED: OXYTOCIN 20 UNITS in 0.9% NS 20 UNIT/1,000 ML INFUS.BAG IV ONE (13:20)
[2023-12-01] MEDS ORDERED: ONDANSETRON 4 MG/2 ML VIAL IVPUSH PRN (13:21)
[2023-12-01] MEDS ORDERED: ACETAMINOPHEN INJECTION 100 ML IVPB ONE (15:29)
[2023-12-01] MEDS ORDERED: PROMETHAZINE HCL 25 MG/1 ML VIAL IVPB PRN (15:54)
[2023-12-01] MEDS ORDERED: ACETAMINOPHEN 1000 MG/100 ML BAG IVPB ONE (16:00)
[2023-12-01 16:27] LABS: HEMATOCRIT 33.3 % (32.4-45.2); HEMOGLOBIN 10.9 GM/dL (10.7-15.3); MCH 28.1 pg (25.7-33.7); MCHC 32.6 g/dl (32.0-36.0); MEAN CELL VOLUME 86.2 fl (80-96); MEAN PLT VOLUME 8.6 fl (7.5-11.1); PLATELET COUNT 219 10^3/uL (134-434); RBC 3.86 M/mm3 (3.60-5.2); RDW 15.5 % (11.6-15.6); WHITE BLOOD COUNT 10.1 K/mm3 (4.0-10.0)
[2023-12-01 17:23] LABS: ANISOCYTOSIS 2+; MACROCYTOSIS 0; OVALOCYTE 2+
[2023-12-01] MEDS: IBUPROFEN 800 MG/8 ML IJ IVPB PRN (17:28)
[2023-12-01] MEDS ORDERED: oxyCODONE HCL 5 MG TABLET PO PRN (20:11)
[2023-12-02] MEDS: OXYTOCIN 20 UNITS in 0.9% NS 20 UNIT/1,000 ML INFUS.BAG IV SCH (03:19)
[2023-12-02] MEDS: IBUPROFEN 800 MG/8 ML IJ IVPB PRN (03:20)
[2023-12-02 08:03] LABS: BASO % 0.3 % (0-2.0); EOS % 0.2 % (0-4.5); HEMATOCRIT 27.1 % (32.4-45.2); HEMOGLOBIN 8.8 GM/dL (10.7-15.3); LYMPH % 13.1 % (8-40); MCH 27.9 pg (25.7-33.7); MCHC 32.4 g/dl (32.0-36.0); MEAN CELL VOLUME 86.1 fl (80-96); MEAN PLT VOLUME 8.7 fl (7.5-11.1); MONO % 11.5 % (3.8-10.2); NEUT % 74.9 % (42.8-82.8); PLATELET COUNT 202 10^3/uL (134-434); RBC 3.15 M/mm3 (3.60-5.2); RDW 15.3 % (11.6-15.6); WHITE BLOOD COUNT 11.6 K/mm3 (4.0-10.0)
[2023-12-02] MEDS ORDERED: BISACODYL 10 MG SUPP.RECT RC PRN (08:11)
[2023-12-02] MEDS: PRENATAL VITAMINS W/ FOLIC ACID TABLET (FP) PO SCH (09:28)
[2023-12-02] MEDS: FERROUS SO4 325 MG TABLET (FP) PO SCH ×2 (09:28→21:17)
[2023-12-02] MEDS: IBUPROFEN 600 MG TABLET (FP) PO PRN ×3 (09:45→19:55)
[2023-12-02] MEDS: SIMETHICONE 80 MG TAB.CHEW (FP) PO PRN ×2 (18:17→21:18)
[2023-12-02] MEDS: oxyCODONE HCL 5 MG TABLET PO PRN ×2 (18:17→21:18)
[2023-12-02] MEDS: SENNOSIDES/DOCUSATE COMBO (SENNA PLUS) TABLET (UD) PO PRN (21:17)
[2023-12-03] MEDS: SIMETHICONE 80 MG TAB.CHEW (FP) PO PRN ×4 (05:04→20:10)
[2023-12-03] MEDS: oxyCODONE HCL 5 MG TABLET PO PRN ×2 (05:04→16:07)
[2023-12-03] MEDS: IBUPROFEN 600 MG TABLET (FP) PO PRN ×2 (05:52→10:59)
[2023-12-03] MEDS: FERROUS SO4 325 MG TABLET (FP) PO SCH ×2 (10:59→22:27)
[2023-12-03] MEDS: PRENATAL VITAMINS W/ FOLIC ACID TABLET (FP) PO SCH (10:59)
[2023-12-03] MEDS: SENNOSIDES/DOCUSATE COMBO (SENNA PLUS) TABLET (UD) PO PRN (20:10)
[2023-12-04] MEDS: IBUPROFEN 600 MG TABLET (FP) PO PRN ×2 (00:11→06:47)
[2023-12-04] MEDS: SIMETHICONE 80 MG TAB.CHEW (FP) PO PRN ×2 (00:11→06:47)
[2023-12-04 09:56] LABS: BASO % 0.4 % (0-2.0); EOS % 1.1 % (0-4.5); HEMATOCRIT 29.8 % (32.4-45.2); HEMOGLOBIN 9.8 GM/dL (10.7-15.3); LYMPH % 15.3 % (8-40); MCHC 32.7 g/dl (32.0-36.0); MEAN CELL VOLUME 85.6 fl (80-96); MEAN PLT VOLUME 8.3 fl (7.5-11.1); MONO % 8.3 % (3.8-10.2); NEUT % 74.9 % (42.8-82.8); PLATELET COUNT 261 10^3/uL (134-434); RBC 3.48 M/mm3 (3.60-5.2); RDW 15.5 % (11.6-15.6); WHITE BLOOD COUNT 7.8 K/mm3 (4.0-10.0)
[2023-12-04] MEDS: PRENATAL VITAMINS W/ FOLIC ACID TABLET (FP) PO SCH (10:11)
[2023-12-04] MEDS: FERROUS SO4 325 MG TABLET (FP) PO SCH (10:11)
[2023-12-04 11:21] VITALS: BP 101/66; PULSE 88; RESP 17; TEMP 98.1
== END 2023-12-04 14:05 | disposition home or self-care (01) | DRG 540 ==
LOC: JLDR 06:20 → J3W 16:34
PROVIDERS: ADMIT Obstetrics & Gynecology; ATTEND Obstetrics & Gynecology
PROC: 10D00Z1 Extraction of Products of Conception, Low, Open Approach (ICD-10-PCS; principal; 2023-12-01)
PROC: 0UB70ZZ Excision of Bilateral Fallopian Tubes, Open Approach (ICD-10-PCS; 2023-12-01)
DX: O34.211 Maternal care for low transverse scar from previous cesarean delivery (principal); N85.8 Other specified noninflammatory disorders of uterus; O32.2XX0 Maternal care for transverse and oblique lie, not applicable or unspecified; O99.284 Endocrine, nutritional and metabolic diseases complicating childbirth; E03.9 Hypothyroidism, unspecified; Z30.2 Encounter for sterilization; Z3A.39 39 weeks gestation of pregnancy; Z37.0 Single live birth
CPT/HCPCS: 36415; 36600; 80048; 82803; 85025; 85610; 85730; 86780; 86850; 86900; 86901; 87389; 88305-TC; 88307-TC